=== PATIENT | male | born 1995 | race Caucasian/White ===

== ENCOUNTER 2017-01-11 13:46 | Emergency (ER) | payer SELFPAY ==
[~2017-01-11] VITALS: Ht 170.2 cm; Wt 54.4 kg
[2017-01-11] MEDS ORDERED: INSULANT SC (13:59)
[2017-01-11] MEDS ORDERED: HUMA100I3 SC (13:59)
[2017-01-11] MEDS ORDERED: NS 1,000 ML IV ONE ×2 (14:15→15:30)
[2017-01-11 14:41] LABS: BASO % 0.7 % (0.0-1.0); EOS % 0.4 % (0.0-3.0); LARGE UNSTAINED CELL # 0.1 K/mm3 (0.0-0.4); LARGE UNSTAINED CELL % 1.5 % (0.0-4.0); MEAN CORPUSCULAR HEMOGLOBIN 33.2 pg (27.0-33.0); MEAN CORPUSCULAR HGB CONC 32.6 g/dl (32.0-36.5); MEAN CORPUSCULAR VOLUME 101.8 fl (80.0-96.0); MONO # 0.2 K/mm3 (0.0-0.8); MONO % 5.5 % (0.0-5.0); NEUTROPHILS # 2.6 K/mm3 (1.8-7.7); NEUTROPHILS % 66.9 % (36.0-66.0); PLATELET COUNT, AUTOMATED 252 k/mm3 (150-450); RED CELL DISTRIBUTION WIDTH 12.4 % (11.5-14.5)
[2017-01-11 14:59] LABS: METHADONE URINE NEGATIVE (NEGATIVE)
[2017-01-11 15:07] LABS: ALBUMIN 3.8 GM/DL (3.2-5.2); ALBUMIN/GLOBULIN RATIO 1.12 (1.00-1.93); ALKALINE PHOSPHATASE 240 U/L (45-117); ALT/SGPT 18 U/L (12-78); ANION GAP 10 MEQ/L (8-16); AST/SGOT 5 U/L (15-37); BILIRUBIN,DIRECT 0.2 MG/DL (0.0-0.2); BILIRUBIN,TOTAL 1.2 MG/DL (0.2-1.0); BLOOD UREA NITROGEN 16 MG/DL (7-18); CALCIUM LEVEL 8.3 MG/DL (8.5-10.1); CARBON DIOXIDE LEVEL 26 MEQ/L (21-32); CHLORIDE LEVEL 90 MEQ/L (98-107); CREATININE FOR GFR 0.95 MG/DL (0.70-1.30); FREE T4 1.14 NG/DL (0.78-1.33); SODIUM LEVEL 126 MEQ/L (136-145); TOTAL PROTEIN 7.2 GM/DL (6.4-8.2)
[2017-01-11 15:14] LABS: GLUCOSE, FASTING 734 MG/DL (70-105); POTASSIUM SERUM 5.7 MEQ/L (3.5-5.1)
[2017-01-11] MEDS ORDERED: HumuLIN R (REGULAR) INSULIN (NovoLIN R) **100U/ML** PER UNIT IV ONE ×2 (15:30→16:15)
[2017-01-11 16:45] VITALS: BP 115/72
[2017-01-11 17:43] LABS: ANION GAP 8 MEQ/L (8-16); BLOOD UREA NITROGEN 12 MG/DL (7-18); CALCIUM LEVEL 7.9 MG/DL (8.5-10.1); CARBON DIOXIDE LEVEL 28 MEQ/L (21-32); CHLORIDE LEVEL 104 MEQ/L (98-107); CREATININE FOR GFR 0.54 MG/DL (0.70-1.30); GLUCOSE, FASTING 185 MG/DL (70-105); POTASSIUM SERUM 3.4 MEQ/L (3.5-5.1); SODIUM LEVEL 140 MEQ/L (136-145)
--- NOTE | 2017-01-12 10:13 | ECGEPIP ---
Stationary ECG Study [facility] - ED Test Date: 2017-01-11 Pat Name: ALLIE ROCHE Department: Room: - Gender: M Adon: KATHARINA : 1995 Requested By: Miguel Ángel Olmstead Order Number: [id number] Reading MD: Roshni Arcos Measurements Intervals [place] Rate: 57 P: 45 MT: 174 QRS: 43 QRSD: 89 T: 19 QT: 410 QTc: 401 Interpretive Statements SINUS BRADYCARDIA WITH SINUS ARRHYTHMIA EARLY REPOLARIZATION NO PRIOR FOR COMPARISON Electronically Signed On 01-12-2017 10:12:58 EDT by Roshni Arcos
== END 2017-01-11 18:20 | disposition home or self-care (01) ==
LOC: M ED 14:37
DX: E11.65 Type 2 diabetes mellitus with hyperglycemia (principal); F19.10 Other psychoactive substance abuse, uncomplicated; Z79.4 Long term (current) use of insulin
CPT/HCPCS: 36415; 80048; 80076; 80306; 81001; 83735; 84439; 84443; 85025; 93005; 93041; 94760; 96360; 96374; 96376; 99285; G0480